=== PATIENT | male | born 1965 | race Caucasian/White ===

== ENCOUNTER 2016-12-17 19:09 | Emergency (ER) | payer OTHER, BC ==
[~2016-12-17 19:09] MED LIST: CYCL-36 PO; LORT5TAB PO; Z.0.NO CURRENT MEDS
[2016-12-17 19:16] VITALS: BP 169/97; PULSE 87; RESP 15; TEMP 98.7; O2SAT 99
[2016-12-17] MEDS ORDERED: DICL75TA PO (19:39)
[2016-12-17] MEDS ORDERED: CYCL1TAB29 PO (19:39)
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
[2016-12-17] MEDS ORDERED: IBUPROFEN 800 MG TAB PO ONE (20:00)
[2016-12-17] MEDS ORDERED: CYCLOBENZAPRINE HCL 10 MG TAB PO ONE (20:00)
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
== END 2016-12-17 20:26 | disposition home or self-care (01) ==
LOC: NEPD 19:09
DX: S16.1XXA Strain of muscle, fascia and tendon at neck level, initial encounter (principal); V43.52XA Car driver injured in collision with other type car in traffic accident, initial encounter; Y93.89 Activity, other specified; Y92.410 Unspecified street and highway as the place of occurrence of the external cause; Y99.0 Civilian activity done for income or pay
CPT/HCPCS: 70450; 72125; 99284